=== PATIENT | male | born 1970 | race Caucasian/White ===

== ENCOUNTER → 2020-05-31 07:50 | Outpatient (CLI) | payer OTHER, SELFPAY ==
--- NOTE | ~2020-05-31 | US_ITS ---
EXAMINATION: US abdomen complete DATE: 05/31/2020 08:33 INDICATION: Elevated liver enzymes TECHNIQUE: Multiple grayscale and Doppler ultrasound images of the abdomen were obtained. COMPARISON: 09/20/2013 FINDINGS: The head and and body of the pancreas are normal. The pancreatic tail is obscured by bowel gas. The liver demonstrates increased echogenicity, heterogenous echotexture, and decreased through t ransmission. No surface nodularity. Normal hepatopetal flow in the main portal vein. The gallbladder is normal with no abnormal wall thickening, pericholecystic fluid or stones. The normal common bile d uct measures 4 mm. There was no sonographic Mondragon sign. The visualized portions of the aorta and inf erior vena cava are normal. The right kidney measures 10.7 x 6.4 x 5.9 cm. The left kidney measures 10.2 x 6.4 x 6.2 cm. The kidn eys demonstrate normal parenchymal echogenicity. There is no hydronephrosis. The spleen is normal in appearance and measures 10.5 cm. IMPRESSION: 1. Diffuse hepatic steatosis. Reviewed, dictated and finalized at location B.
== END ==
PROVIDERS: PCP Family Medicine Adolescent Medicine; Visit Provider Family Medicine Adolescent Medicine
DX: R94.5 Abnormal results of liver function studies (principal); K76.0 Fatty (change of) liver, not elsewhere classified
CPT/HCPCS: 76700

== ENCOUNTER 2020-10-23 08:28 | Outpatient (CLI) | payer OTHER, SELFPAY ==
--- NOTE | 2020-12-09 10:48 | WPDHOMESLEEP ---
Sleep Study - Home Unattended Date of Study: 10/23/20 Ordering Provider: Yousif Aguirre MD Interpreting Physician: Vania Herbert MD Home Sleep Study Type: Watch PAT Height: 1.83 m Weight: 97.976 kg Body Mass Index: 29.2 Neck Circumference (inches): 16.5 [place]: 4 Reason for Sleep Study poor quality sleep Sleep History Jamir Mills is a 50-year-old man who has difficulty falling asleep. He wakes up throughout the night. He frequently snores and it is loud enough that others complain about it. He occasionally awakens at night with belching, heartburn and coughing. He rarely awakens from sleep feeling short of breath. He occasionally has trouble sleeping with a cold. He never wakes up gasping for breath at night. He occasionally has breathing problems at night observed by others. He occasionally sweats excessively at night and notices his heart pounding or beating irregularly at night. He rarely falls asleep during the day. He never falls asleep involuntarily or while driving. He does not fall asleep while exerting physical effort. He does not have loss of muscle tone with strong emotion. He occasionally has daytime difficulties due to excessive sleepiness. 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 He does not feel paralyzed on waking or falling asleep. He occasionally has vivid dreamlike scenes upon awakening or falling asleep. He occasionally is afraid to go to sleep. He occasionally has nightmares. He occasionally remembers his dreams. He frequently has racing thoughts. He occasionally feels sad or depressed. He frequently has anxiety. He occasionally has muscular tension and notices parts of his body jerking at night. He frequently kicks at night. He occasionally has crawling and aching feelings in his legs and leg pain during the night. He rarely has morning jaw pain. He rarely grinds his teeth during sleep. He occasionally is bothered by pain during the day and is awakened by pain during the night. He occasionally wakes up feeling stiff in the morning with sore achy muscles and pain in the neck and spine. He has insomnia, palpitations and takes antacids regularly. Normal bedtime is around 11:00 p.m. taking an hour to fall asleep typically waking 8-10 times during the night. He will drink water when he wakes up. He will stay awake for 5-10 minutes on average. He does not take naps. A short nap is not refreshing. He is drowsy in the morning for an hour. He feels better in the evening compared to the morning. Habits: Quit tobacco 29 years ago. No caffeine. Alcohol 4-5 a beverages a couple of days out of the week. No recreational drugs. 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 Prior to using the device, the patient received verbal and written instructions for its application and was provided with the help desk phone number for additional telephonic instruction with 24-hour availability of qualified personnel to answer ques
[2020-12-09 11:16] VITALS: BMI 29.2
== END 2020-10-23 08:29 | disposition home or self-care (01) ==
LOC: ANHCSM 08:28
PROVIDERS: PCP Family Medicine Adolescent Medicine; Visit Provider Internal Medicine Cardiovascular Disease
DX: R06.83 Snoring (principal)
CPT/HCPCS: 95800

== ENCOUNTER → 2021-05-20 10:58 | Outpatient (CLI) | payer OTHER, SELFPAY ==
--- NOTE | ~2021-05-20 | CT_ITS ---
EXAMINATION: CT abdomen pelvis w con INDICATION: Left lower quadrant pain TECHNIQUE: Computed tomographic images of the abdomen and pelvis were obtained after the administrati on of 100 cc of Omnipaque 350 intravenous contrast. The dose-length product (DLP) was 860.25 mGy-cm. Automated exposure control and iterative reconstruction technique were employed. COMPARISON: 02/21/2016 FINDINGS: The lung bases are clear. The heart size is normal. The liver is diffusely low in attenuati on when compared with the spleen, consistent with hepatic steatosis. The spleen, pancreas, gallbladde r, and adrenal glands are normal. There is a 5 mm nonobstructing stone of the right kidney. Cysts of the left kidney measure up to 1.7 cm. No pathologically enlarged abdominal or pelvic lymph nodes are identified. There are no dilated loops of bowel. Colonic diverticulosis is noted. There is inflammato ry stranding of the perisigmoid fat near the proximal sigmoid colon. No free intraperitoneal gas is i dentified. The appendix is normal. There are bilateral pars defects at L4 with grade 1 anterolisthesi s of L4 on L5. Mild lumbar spondylosis is noted. IMPRESSION: 1. Acute, uncomplicated sigmoid diverticulitis. Reviewed, dictated and finalized at location B.
[2021-05-20 11:38] LABS: Estimated Glomerular Filt Rate > 60
== END ==
PROVIDERS: PCP Internal Medicine; Visit Provider Internal Medicine
DX: R10.32 Left lower quadrant pain (principal); K57.32 Diverticulitis of large intestine without perforation or abscess without bleeding
CPT/HCPCS: 74177; Q9967

== ENCOUNTER → 2021-06-23 07:55 | Outpatient (CLI) | payer OTHER, SELFPAY ==
--- NOTE | ~2021-06-23 | XR_ITS ---
EXAMINATION: XR tibia fibula RT 2V DATE: 06/23/2021 08:46 INDICATION: Right lower leg injury. TECHNIQUE: AP and lateral views of the right tibia/fibula were obtained. COMPARISON: Right knee radiographs dated 12/24/2015 FINDINGS: Bone alignment is normal. No fracture. Joint spaces are normal. Soft tissues are unremarkable with no right knee or ankle joint effusion. IMPRESSION: 1. . Negative right lower leg radiographs. Reviewed, dictated and finalized at location B.
== END ==
PROVIDERS: PCP Internal Medicine; Visit Provider Internal Medicine
DX: T14.8XXA Other injury of unspecified body region, initial encounter (principal); S89.91XA Unspecified injury of right lower leg, initial encounter; X58.XXXA Exposure to other specified factors, initial encounter
CPT/HCPCS: 73590

== ENCOUNTER 2021-10-07 14:55 | Outpatient (CLI) | payer OTHER, SELFPAY ==
--- NOTE | ~2021-10-07 | US_ITS ---
EXAMINATION: US abdomen limited DATE: 10/07/2021 15:52 INDICATION: Epigastric pain TECHNIQUE: Multiple grayscale and Doppler ultrasound images of the abdomen were obtained. COMPARISON: 05/31/2020; CT, 05/20/2021 FINDINGS: The head and body of the pancreas are normal. The pancreatic tail is obscured by bowel gas. The liver is normal with normal echogenicity and echotexture. No surface nodularity. Normal hepatope akanksha flow in the main portal vein. The gallbladder is normal with no abnormal wall thickening, pericho lecystic fluid or stones. The normal common bile duct measures 5 mm. There was no sonographic Mondragon sign. IMPRESSION: 1. Normal sonographic study of the gallbladder. Reviewed, dictated and finalized at location A. NISTRATIVE SERVICES ASSISTANT
--- NOTE | ~2021-10-07 | XR_ITS ---
EXAMINATION: XR chest 2V w apical lordotic EXAM DATE: 10/07/2021 16:10 INDICATION: R07.89 -central to left-sided chest pain. TECHNIQUE: Frontal and lateral projections of the chest obtained and reviewed. Additional apical lord otic frontal projection. Comparison is made to prior examination from 11/24/2017. FINDINGS: The lungs are clear. Lung apices unremarkable. There are no pleural effusions. The cardiom ediastinal silhouette is within normal limits. There is no pneumothorax suspected. The bones and so ft tissues are unremarkable. Left glenoid rotator cuff repair anchors. IMPRESSION: Unremarkable chest x-ray exam. Reviewed, dictated and finalized at location A. GRINDER
--- NOTE | ~2021-10-07 | XR_ITS ---
EXAMINATION: XR sniff test without CXR2V EXAM DATE: 10/07/2021 16:10 INDICATION: R10.13 - Epigastric pain. Anterior left chest pain. TECHNIQUE: Sniff test performed under fluoroscopic guidance. Dose reduction digital pulsed fluoroscop y was used at 4 frames per second with DAP 0.7 Gycm2, and a total number of 30 images for the exam. Total fluoroscopy time of 0.1 minutes. There is no prior study for comparison. FINDINGS: The hemidiaphragms move symmetrically under both quite respiration and forced inspiration, no evidence of paralysis. IMPRESSION: Normal diaphragm motion. Reviewed, dictated and finalized at location A. 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
== END 2021-10-07 14:56 | disposition home or self-care (01) ==
PROVIDERS: PCP Internal Medicine; Visit Provider Internal Medicine
DX: R06.02 Shortness of breath (principal); R07.81 Pleurodynia; R10.13 Epigastric pain; M25.512 Pain in left shoulder; M54.9 Dorsalgia, unspecified; R07.89 Other chest pain
CPT/HCPCS: 71047; 76000; 76705

== ENCOUNTER 2021-11-03 08:29 | Outpatient (CLI) | payer OTHER, SELFPAY ==
[2021-11-03 10:07] LABS: Influenza A QL RT-PCR Negative (Negative); Influenza B QL RT-PCR Negative (Negative); SARS-CoV-2 RNA PCR Positive (Negative)
== END 2021-11-03 08:30 | disposition home or self-care (01) ==
PROVIDERS: PCP Internal Medicine; Visit Provider Internal Medicine
DX: U07.1 COVID-19 (principal); R68.89 Other general symptoms and signs; R05.9 Cough, unspecified
CPT/HCPCS: 87502; C9803; U0003; U0005

== ENCOUNTER 2022-07-10 09:29 | Outpatient (CLI) | payer OTHER, SELFPAY ==
--- NOTE | ~2022-07-10 | CT_ITS ---
EXAMINATION: CT chest abdomen pelvis w con DATE: 07/10/2022 10:52 INDICATION: Night sweats. TECHNIQUE: Computed tomography (CT) of the chest, abdomen, and pelvis was performed with 100 mL Omnip aque 350 intravenous contrast. Automated exposure control and iterative reconstruction technique were employed. The dose-length product was 972.67 mGy-cm. COMPARISON: CT abdomen and pelvis 05/20/2021 FINDINGS: CHEST CT: There is mild emphysema. There is mild atelectasis bilaterally. No pleural effusion. The heart size i s normal. No pericardial effusion. There is mild thoracic spondylosis. ABDOMEN/PELVIS CT: There is diffuse hepatic steatosis. The spleen, gallbladder, pancreas, adrenal glands, and right kidn ey are normal. There is a 2.1 cm cyst in left kidney. There is diverticulosis of the colon without ev idence of diverticulitis. There are no dilated loops of bowel. The appendix is normal. There are no p athologically enlarged lymph nodes. There is no free intraperitoneal fluid. There are chronic bilater al L5 pars defects. There is 7 mm anterolisthesis of L4 on L5. There is moderate lumbar spondylosis. IMPRESSION: 1. Diffuse hepatic steatosis. 2. Mild emphysema. Reviewed, dictated and finalized at location A.
[2022-07-10 10:39] LABS: Estimated Glomerular Filt Rate > 60
== END 2022-07-10 09:30 | disposition home or self-care (01) ==
PROVIDERS: PCP Internal Medicine; Visit Provider Internal Medicine
DX: R61 Generalized hyperhidrosis (principal); L29.9 Pruritus, unspecified
CPT/HCPCS: 71260; 74177; Q9967

== ENCOUNTER 2022-07-21 08:00 | Outpatient (NON) | payer OTHER, SELFPAY | END 2022-07-21 08:01 | disposition home or self-care (01) | LOC: ANHLAB 07-22 13:05 | PROVIDERS: PCP Internal Medicine; Visit Provider Surgery Plastic and Reconstructive Surgery | DX: D17.1 Benign lipomatous neoplasm of skin and subcutaneous tissue of trunk (principal) | CPT/HCPCS: 88304 ==

== ENCOUNTER 2022-08-04 16:44 | Emergency (ER) | payer OTHER, SELFPAY ==
--- NOTE | ~2022-08-04 | XR_ITS ---
EXAMINATION: XR chest 2V Exam Date/Time: 08/04/2022 17:40 CDT HISTORY: high heart rate, SOB Comparison: 10/07/2021. RESULT: Lines, tubes, and devices: Soft tissue anchors in the left shoulder. Lungs and pleura: Patchy subsegmental and linear bibasilar opacities. Cardiomediastinal silhouette: Stable. Other: No acute osseous or upper abdominal finding. IMPRESSION: Bibasilar atelectasis and/or consolidation. Reviewed, dictated and finalized at location K.
[2022-08-04 16:46] VITALS: BP 141/104; PULSE 89; RESP 16; TEMP 36.2; O2SAT 100
--- NOTE | 2022-08-04 16:48 | ECG_ITS ---
Measurements Intervals [place] Rate: 92 P: 59 IA: 172 QRS: 49 QRSD: 90 T: 33 QT: 332 QTc: 412 Interpretive Statements SINUS RHYTHM NORMAL ECG NO PREVIOUS ECG AVAILABLE FOR COMPARISON Electronically Signed On 08-04-2022 17:09:23 CDT by Jeremiah Robison M.D.
[2022-08-04 18:26] LABS: Basophils Absolute Auto 0.1 K/mm3 (0.0-0.1); Basophils Percent Auto 1.1 % (0.2-1.2); Eosinophils Absolute Auto 0.3 K/mm3 (0-0.3); Hematocrit 48.9 % (42.0-52.0); Immature Granulocyte Absolute 0.02 K/mm3 (0.00-0.031); Immature Granulocyte Percent A 0.3 % (0-0.5); Lymphocytes Absolute Auto 2.25 K/mm3 (0.9-3.2); Lymphocytes Percent Auto 32.2 % (18.3-44.2); Mean Corpuscular HGB Conc 32.7 g/dl (32-36); Mean Corpuscular Hemoglobin 30.5 pg (26-34); Mean Corpuscular Volume 93.1 fl (80-100); Mean Platelet Volume 8.6 fl (7.4-10.4); Monocytes Absolute Auto 0.9 K/mm3 (0.1-0.6); Monocytes Percent Auto 13.3 % (2.6-8.5); Neutrophils Absolute Auto 3.4 K/mm3 (1.3-6.7); Neutrophils Percent Auto 49.1 % (45.5-73.1); Platelet Count Result 243 k/mm3 (150-375); Red Blood Count 5.25 M/mm3 (4.6-6.20); Red Cell Distribution Width 13.3 % (11.5-14.5)
[2022-08-04 18:36] LABS: INR 1.1; Prothrombin Time 13.9 Seconds (11.1-14.7)
[2022-08-04 18:37] LABS: Alanine Aminotransferase 50 U/L (6-50); Albumin Level 4.4 g/dL (3.5-5.1); Alkaline Phosphatase 61 U/L (38-126); Anion Gap 5 mmol/L (8-16); Aspartate Amino Transferase 50 U/L (17-59); Bilirubin,Total 0.5 mg/dL (0.2-1.3); Blood Urea Nitrogen 15 mg/dL (9-20); Calcium 8.9 mg/dL (8.4-10.2); Carbon Dioxide 28 mmol/L (22-30); Chloride 106 mmol/L (98-107); Estimated CRCL calculation 60 ml/min; Estimated Glomerular Filt Rate > 60; Glucose 88 mg/dL (65-110); Lipase 107 U/L (23-300); Partial Thromboplastin Time 28.1 SECONDS (22.3-36.8); Potassium 4.4 mmol/L (3.4-5.0); Sodium 139 mmol/L (137-145)
[2022-08-04 18:51] LABS: Troponin I 0.012 ng/mL (0.000-0.034)
--- NOTE | 2022-08-04 20:31 | ED.ARRPALP ---
HPI - Arrhythmia/Palpitations General Chief Complaint: Arrhythmia/Palpitations Stated Complaint: High Heart Rate Time Seen by Provider: 08/04/22 19:59 History of Present Illness HPI narrative: This is a 52-year-old male with past medical history of anxiety who presents the emergency department complaining of palpitations. He states has been going on for about the last week worse in the last few days. He states she has been evaluated for cough, placed on albuterol which caused worsening of his palpitations then Breo Ellipta which he believes has also irritated the palpitations. He denies associated chest pain or loss of consciousness. He states he has seen heart rates in the 160s by his smart watch monitor. Each episode lasts 1 to 2 minutes and resolves on its own. He has no other complaints. Related Data Home Medications Medication Instructions Recorded Confirmed multivitamin 1 tablet PO DAILY 01/30/21 07/29/22 tadalafil 10 mg tablet (Cialis) 10 mg PO DAILY PRN 03/28/21 07/29/22 cholecalciferol (vitamin D3) 25 25 mcg PO DAILY 04/07/21 07/29/22 mcg (1,000 unit) capsule Allergies Allergy/AdvReac Type Severity Reaction Status Date / Time meperidine Allergy Unknown Unknown Verified 07/27/22 07:39 acetaminophen [From Vicodin] AdvReac Agitated Verified 07/27/22 07:39 hydrocodone [From Vicodin] AdvReac Agitated Verified 07/27/22 07:39 propoxyphene [From Darvon] AdvReac Agitated Verified 07/27/22 07:39 Review of Systems Review of Systems: CONSTITUTIONAL: Denies fever, chills, or sweats. EYES: Denies visual changes, redness, or discharge. ENT: Denies rhinorrhea, congestion, sore throat, or otalgia. CARDIOVASCULAR: palpitations Denies chest pain, , or edema. RESPIRATORY: Intermittent cough, denies dyspnea. GASTROINTESTINAL: Denies abdominal pain, nausea, vomiting, or diarrhea. GENITOURINARY: Denies dysuria or hematuria. SKIN: Denies rash or itching. MUSCULOSKELETAL: Denies back pain, joint pain, or myalgia. NEUROLOGIC: Denies headache, numbness, dizziness, or weakness. PSYCHIATRIC: Denies anxiety or depression. [facility] Past Medical History Medical History (Reviewed 07/27/22 @ 07:42 by Mia Calderón [facility]) Abnormal finding of blood chemistry Anxiety Benign essential hypertension BMI 28.0-28.9,adult BMI 29.0-29.9,adult Chronic low back pain Colon cancer screening Diarrhea Encounter for preventive health examination Encounter for routine adult health examination without abnormal findings Encounter to establish care Epigastric pain Erectile dysfunction Follow up GERD (gastroesophageal reflux disease) Heartburn Hip pain History of diverticulosis Hypercholesterolemia Hyperlipidemia Hypertension Hypogonadism IBS (irritable bowel syndrome) Impacted cerumen of both ears Left hip pain Left shoulder pain Lipoma Male pattern baldness Mass Muscle spasm 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 Overweight Prostate cancer screening Seasonal allergies Vitamin D deficiency Surgical History Surgical History History of ptosis repair Family History Family History Mother Family history of arthritis Social History Social History (Reviewed 07/27/22 @ 07:42 by Mia Calderón [facility]) Smoking status: Former smoker Alcohol intake: current Alcohol use details: 4-5 drinks a couple of times a week Substance use: never 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 Appears somewhat anxious HEAD: Normocephalic, atraumatic. EYES: PERRLA and EOMI. ENT: Nares clear, no rhinorrhea or epistaxis. Mucous membranes moist. Oropharynx without tonsillar hypertrophy exudate or other lesions. NECK: Supple. No adenopathy or masses. No carotid bruits or JVD CHEST: Clear to auscultation. No respiratory distress. No wheezes rales or
[2022-08-04 20:33] VITALS: BP 144/105; PULSE 77; RESP 13
[2022-08-04 20:37] VITALS: PULSE 72
[2022-08-04] MEDS: METOPROLOL TARTRATE 25 MG TABLET PO (20:37)
[2022-08-04 20:55] VITALS: BP 130/92; PULSE 73; RESP 14
[2022-08-04 21:01] VITALS: BP 134/95
[2022-08-04 21:12] LABS: Troponin I 0.023 ng/mL (0.000-0.034)
== END 2022-08-04 21:17 | disposition home or self-care (01) ==
PROVIDERS: Emergency Medicine; Emergency Provider Preventive Medicine Aerospace Medicine; PCP Internal Medicine
DX: R00.2 Palpitations (principal); I47.1 Supraventricular tachycardia; I10 Essential (primary) hypertension; F41.9 Anxiety disorder, unspecified; K21.9 Gastro-esophageal reflux disease without esophagitis; E78.5 Hyperlipidemia, unspecified; E55.9 Vitamin D deficiency, unspecified; N52.9 Male erectile dysfunction, unspecified; K58.9 Irritable bowel syndrome, unspecified; Z79.51 Long term (current) use of inhaled steroids; Z87.891 Personal history of nicotine dependence
CPT/HCPCS: 36415; 71046; 80053; 83690; 84484; 85025; 85610; 85730; 93005; 99284; A9270

== ENCOUNTER 2022-08-13 07:50 | Outpatient (CLI) | payer OTHER, SELFPAY ==
--- NOTE | 2022-08-13 08:09 | ECHO_ITS ---
Patient Info Name: Jamir Ndiaye Age: 52 years : 1970 Gender: Male Ht: 72 in Wt: 212 lbs BSA: 2.23 m2 HR: 71 bpm BP: 133 / 87 mmHg Heart Rhythm: Sinus Rhythm Exam Date: 08/13/2022 8:28 AM Exam Location: [facility] Patient Status: Outpatient Admit Date: 08/13/2022 Staff Ordering Physician: Justin Linton MD Drapery Seamstress: Carlos Mondragon, CHIRAG, RT Attending Provider: Justin Linton MD Referring Physician: Shaila BHATIA; Exam Type: CA echo doppler color flow Study Info Indications - SVT I49.8 - Other specified cardiac arrhythmias Complete two-dimensional, color flow and Doppler transthoracic echocardiogram is performed. Strain analysis performed. Summary 1. Complete two-dimensional, color flow and Doppler transthoracic echocardiogram is performed. 2. Left ventricular systolic function is normal, estimated at 60-65%. 3. There is mildly increased left ventricular wall thickness. 4. The left ventricular diastolic function is normal. 5. Right ventricular systolic function is normal. 6. The aortic root size at the sinus of Valsalva is dilated. 7. No significant valvular disease. Left Ventricle Left ventricular chamber dimension is normal. Left ventricular systolic function is normal, estimated at 60-65%. There is mildly increased left ventricular wall thickness. The left ventricular diastolic function is normal. Right Ventricle Right ventricular chamber dimension is normal. Right ventricular systolic function is normal. Left Atria Left atrial chamber dimension is normal. Right Atria Right atrial chamber dimension is normal. Atrial Septum Intact interatrial septum visualized by color flow imaging. Aortic Valve The aortic valve is probable trileaflet. There is no aortic valve stenosis. There is no aortic valve regurgitation. Pulmonic Valve The pulmonic valve is not well visualized. Mitral Valve The mitral valve has normal leaflets. There is no mitral valve stenosis. There is trace mitral valve regurgitation. Tricuspid Valve The tricuspid valve leaflets are normal. There is no significant tricuspid valve stenosis. There is mild tricuspid valve regurgitation. Pericardium/Pleural There is no pericardial effusion. Inferior Vena Cava Normal inferior vena cava with >50% collapse upon inspiration consistent with normal right atrial pressure, 3 mmHg. Aorta The aortic root size at the sinus of Valsalva is dilated. Left Ventricular Outflow Tract Name Value Normal LVOT 2D LVOT Diameter 2.0 cm LVOT Doppler LVOT Peak Gradient 5 mmHg LVOT Mean Gradient 2 mmHg LVOT VTI 22 cm LVOT VTI/AV VTI Ratio 0.8 LVOT Stroke Volume 71 ml LVOT CO 4.5 l/min LVOT CI 2.0 l/min/m2 Mitral Valve Name Value Normal
== END 2022-08-13 07:51 | disposition home or self-care (01) ==
LOC: ANHCARD 07:51
PROVIDERS: PCP Internal Medicine; Visit Provider Internal Medicine
DX: R00.2 Palpitations (principal); R06.02 Shortness of breath; I47.1 Supraventricular tachycardia
CPT/HCPCS: 93306

== ENCOUNTER 2022-08-14 09:12 | Outpatient (CLI) | payer OTHER, SELFPAY ==
--- NOTE | 2022-08-14 09:58 | PCRCNOTE ---
PT CAME IN FOR PULMONARY FUNCTION TESTING AND DECLINED ALBUTEROL DUE TO SIDE EFFECT OF RAPID HEART RATE
--- NOTE | 2022-08-24 14:05 | WPDPFTINT ---
PFT Procedure Performed PFT Procedure Performed Plethysmography (Lung Vol) Diffusing Cap (DLCO) Flow Vol Loop Spirometry w/o Bronchodil PFT Interpretation DOS: 08/14/2022 REQUESTING: Dr. Linton REASON FOR TESTING: Chronic cough PULMONARY FUNCTION TESTS Results are reliable and reproducible. Spirometry: FEV1 3.5 L, 84%, normal. FVC 4.39 L, 83%, normal. FEV1/FVC 80% normal. No bronchodilator was given. Lung volumes: Total lung capacity 6.35 L, 86%, normal. Residual volume 1.93 L, 89%, normal. RV/TLC 30%, normal. Diffusion: DLCO 26.7, 85% predicted, normal. DLCO/VA 4.25, 96% normal. Flow volume loop: Normal. IMPRESSION: Normal spirometry, lung volumes and diffusion capacity. No bronchodilator was given due to patient previous side effect of rapid heart rate. Vania Herbert MD
== END 2022-08-14 09:13 | disposition home or self-care (01) ==
PROVIDERS: PCP Internal Medicine; Visit Provider Internal Medicine
DX: R05.3 Chronic cough (principal); R06.02 Shortness of breath; R06.09 Other forms of dyspnea
CPT/HCPCS: 94060; 94726; 94729

== ENCOUNTER 2023-09-20 15:11 | Outpatient (NON) | payer OTHER, SELFPAY | END 2023-09-20 15:12 | disposition home or self-care (01) | LOC: ANHLAB 15:11 | PROVIDERS: PCP Internal Medicine; Visit Provider Nurse Practitioner | DX: C44.519 Basal cell carcinoma of skin of other part of trunk (principal) | CPT/HCPCS: 88305; 88331 ==

== ENCOUNTER 2024-01-26 13:28 | Outpatient (CLI) | payer OTHER, SELFPAY ==
--- NOTE | ~2024-01-26 | XR_ITS ---
EXAMINATION: XR chest 2V 01/26/2024 13:40 INDICATION: Cough for one year PROCEDURE: 2 view chest COMPARISON: 08/04/2022 FINDINGS: The lungs are clear. The cardiomediastinal silhouette is within normal limits. There are no pleural effusions. There is no pneumothorax suspected. IMPRESSION: 1: NO ACUTE CARDIOPULMONARY DISEASE. Reviewed, dictated and finalized at location B.
== END 2024-01-26 13:29 ==
PROVIDERS: PCP Internal Medicine; Visit Provider Internal Medicine
DX: R05.9 Cough, unspecified (principal)
CPT/HCPCS: 71046

== ENCOUNTER 2024-05-24 09:29 | Outpatient (CLI) | payer OTHER, SELFPAY ==
--- NOTE | ~2024-05-24 | US_ITS ---
COMPLETE ABDOMINAL ULTRASOUND Ordering provider: Justin Linton MD History: . R10.12 - Left upper quadrant pain . Comparison: None. FINDINGS: LIVER: Normal size with increased echogenicity suggestive of fat infiltration. No focal hepatic lesio ns or perihepatic fluid collections are identified. Normal flow of the portal vein. GALLBLADDER: Unremarkable. No evidence for stones, sludge, gallbladder wall thickening or pericholecy stic fluid collections. A negative sonographic Mondragon's sign was noted. BILIARY DUCTS: No evidence for intra or extrahepatic biliary dilation. Common bile duct measures 4.5 mm in diameter which is within normal limits. PANCREAS: Not visualized. SPLEEN: Normal size, echotexture and contour and measures 10.1 cm in length. KIDNEYS: Right measures 12.6x 6.9x 5.7 cm in length and the left 11.3x 6.7x 5.5 cm in length. There i s no evidence for hydronephrosis, solid renal mass, renal calculi or perinephric fluid collections. L eft renal cyst in the inferior pole measuring 1.4x 1.6x 1.5 cm. UPPER ABDOMINAL AORTA: Normal in caliber. IVC: Patent. FREE FLUID: None. IMPRESSION: Fat infiltration of the liver. Left renal cyst. Otherwise, Unremarkable complete ultrasound of the ab domen. Reviewed, dictated and finalized at location A. IMPRESSION: Fat infiltration of the liver. Left renal cyst. Otherwise, Unremarkable complet e ultrasound of the abdomen.
== END 2024-05-24 09:30 ==
LOC: GOSHIMG 09:30
PROVIDERS: PCP Internal Medicine; Visit Provider Internal Medicine
DX: K76.0 Fatty (change of) liver, not elsewhere classified (principal); N28.1 Cyst of kidney, acquired; R10.12 Left upper quadrant pain
CPT/HCPCS: 76700

== ENCOUNTER 2024-06-02 08:26 | Outpatient (CLI) | payer OTHER, SELFPAY ==
--- NOTE | ~2024-06-02 | CT_ITS ---
CT of the Abdomen and Pelvis: Indication: Abdominal pain Technique: 2.5 mm axial scans were obtained through the abdomen and pelvis following intravenous adm inistration of 100 cc of Omnipaque 350. Dose reduction technique was used on this scan by utilizing a utomated exposure control and iterative reconstruction technique. The dose-length product (DLP) was 1 025.52 mGy-cm. COMPARISON: 07/10/2022 Findings: Scans through the lung bases demonstrate peripheral interstitial thickening and minimal gr oundglass opacity lung bases, with sparing of the immediate subpleural surfaces.. There is probable diffuse hepatic steatosis. The spleen, pancreas, gallbladder, adrenals and kidneys are within normal limits. No evidence of aortic aneurysm. No lymphadenopathy. No bowel obstruction or bowel wall thickening. There is no evidence to suggest acute appendicitis. Images through the pelvis were performed. Urinary bladder unremarkable. No pelvic mass seen. No ascit es. Bilateral L4 pars interarticularis defects are present, with grade 1 anterolisthesis of L4 over L 5. Impression: Bibasilar interstitial thickening and minimal ground glass opacity at the lung bases. Correlate for c hronic interstitial disease versus atypical infectious/inflammatory process. Diffuse hepatic steatosis. Bilateral L4 pars interarticularis defects. Reviewed, dictated and finalized at location . Impression: Bibasilar interstitial thickening and minimal ground glass opacity at the lung bases. Correlate for chronic interstitial disease versus atypical infectious/in flammatory process. Diffuse hepatic steatosis. Bilateral L4 pars interarticularis defects.
[2024-06-02 08:48] LABS: Estimated Glomerular Filt Rate 53
== END 2024-06-02 08:27 ==
LOC: MICIMG 08:27
PROVIDERS: PCP Internal Medicine; Visit Provider Internal Medicine
DX: K76.0 Fatty (change of) liver, not elsewhere classified (principal); M43.06 Spondylolysis, lumbar region; R91.8 Other nonspecific abnormal finding of lung field
CPT/HCPCS: 74177; Q9967

== ENCOUNTER 2024-06-12 10:13 | Outpatient (CLI) | payer OTHER, SELFPAY ==
--- NOTE | 2024-06-13 22:59 | WPDPFTINT ---
PFT Procedure Performed PFT Procedure Performed Plethysmography (Lung Vol) Diffusing Cap (DLCO) Flow Vol Loop Spirometry w/o Bronchodil PFT Interpretation DOS: 06/12/2024 REQUESTING: Dr. Linton REASON FOR TESTING: Shortness of breath PULMONARY FUNCTION TESTS Results are reliable and reproducible. Repeatability of spirometry FEV1 maneuver is Grade A. Spirometry: The FEV1 is 3.53 L, 102%. The FVC is 4.55 L, 103%. The FEV1/FVC ratio is 78%. No bronchodilator was given. Lung volumes: The total lung capacity is 6.54 L, 104%. The residual volume is 1.74 L, 77%. The RV/TLC is 27%. Airway resistance is elevated. Diffusion: DLCO is 22.7, 8%. The DLCO/VA is 4.11, 98%. Flow volume loop: The flow volume loop is normal. IMPRESSION: Normal spirometry, normal lung volumes, normal diffusion. No bronchodilator was given. Compared to a prior study on 08/14/2022, values are similar. Vania Herbert MD
== END 2024-06-12 10:14 | disposition home or self-care (01) ==
PROVIDERS: PCP Internal Medicine; Visit Provider Internal Medicine
DX: R06.02 Shortness of breath (principal)
CPT/HCPCS: 94375; 94726; 94729

== ENCOUNTER 2025-04-06 08:06 | Outpatient (CLI) | payer OTHER, SELFPAY ==
--- NOTE | ~2025-04-06 | CT_ITS ---
EXAMINATION: CT abdomen pelvis wo/w con DATE: 04/06/2025 08:28 INDICATION: Abdominal pain TECHNIQUE: Computed tomography (CT) of the abdomen and pelvis was performed without and with 100 cc O mnipaque 350 intravenous contrast. The dose-length product was 1595.96 mGy-cm. Automated exposure con trol and iterative reconstruction technique were employed. COMPARISON: CT dated 06/02/2024. FINDINGS: There is peripheral interstitial lung disease characterized by groundglass opacification an d areas of interlobular septal thickening. Heart size normal. No significant pleural or pericardial e ffusion. Fatty infiltration of the liver. The spleen, pancreas, adrenal glands and right kidney are unremarkab le. There is a left renal cyst. Gallbladder is present. Nonobstructive bowel gas pattern. No abnormal pelvic masses or fluid collections. No significant vascular abnormality. No lymphadenopathy. Nonobst ructive bowel gas pattern. Colonic diverticulosis without evidence for diverticulitis. Normal appendi x. Mild osteoarthritis of the hips. There is grade 2 spondylolisthesis at L4-5 secondary to bilateral spondylolysis. Mild lumbar spondylosis. IMPRESSION: 1. Stable peripheral interstitial changes bilaterally, likely chronic interstitial lung disease. Atyp ical infection less favored. 2: Fatty infiltration of the liver. Reviewed, dictated and finalized at location A. IMPRESSION: 1. Stable peripheral interstitial changes bilaterally, likely chronic interstit ial lung disease. Atypical infection less favored. 2: Fatty infiltration of the liver.
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
--- OUTSIDE RECORDS SUMMARY | 2025-04-06 08:11 | XMS_ITS | Referral Summary ---
Author Organization [facility] [address] [facility] [address] Address [address] [place] [address] Care Team Providers Care Beer Brewer Name Role Phone Justin Linton MD Primary Care Provider [phone] Encounters Date Type Department Care Team Description 03/20/2025 Telephone [facility] Cardiology [address] [facility] [address] [place] [address] Yousif Aguirre MD Med Refill from Last 3 Months Allergies Active Allergy Reactions Criticality Noted Date Comments Acetaminophen Other (See comments) High Reaction: unknown, Propoxyphene Other (See comments) High Reaction: unknown, , Reaction: unknown, Elrqtof-Ifi-Xgm Reductase Inhibitors Other (See comments) Low 11/08/2020 Elevated liver enzymes Medications ALPRAZolam (XANAX) 0.5 mg tablet take 1 tablet by oral route 3 times every day 0 0 7 Active multivitamin tablet tablet take 1 tablet by oral route every day with food 0 0 7 Active dicyclomine (BENTYL) 10 mg capsule 1 Active candesartan (ATACAND) 32 mg tablet Take 0.5 tablets (16 mg total) by mouth daily Active dilTIAZem CD 240 mg 24 hr capsule Take 1 capsule (240 mg total) by mouth every other day 2 Active aspirin 81 mg enteric coated tablet Take 1 tablet (81 mg total) by mouth daily 30 tablet 11 2 Active VITAMIN E ACETATE ORAL Take by mouth Active ergocalciferol, vitamin D2, (VITAMIN D2 ORAL) Take by mouth Active docosahexaenoic acid/epa (FISH OIL ORAL) Take by mouth Active cyclobenzaprine (FLEXERIL) 10 mg tablet 4 Active finasteride (PROPECIA) 1 mg tablet [address] (PROTONIX) 40 mg EC tablet 4 Active testosterone 20.25 mg/1.25 gram (1.62 %) gel in metered-dose pump 4 Active tadalafiL (ADCIRCA) 10 mg tablet 4 Active evolocumab 140 mg/mL pen injector Inject 1 mL (140 mg total) under the skin every 14 (fourteen) days 2 mL 11 5 Active evolocumab 140 mg/mL pen injector Inject 1 mL (140 mg total) under the skin every 14 (fourteen) days 2 mL 11 4 03/20/20 25 Discontinu ed(Reorder ) Active Problems Problem Noted Date Diagnosed Date 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 Social History Tobacco Use Types Packs/Day Years Used Date Smoking Tobacco: Former Cigarettes Q uit: 08/13/1992 Smokeless Tobacco: Never Tobacco Cessation:Counseling Given: Not Answered Alcohol Use Standard Drinks/Week Comments Yes 0 (1 standard drink = 0.6 oz pur e alcohol) Sex and Gender Information Value Date Recorded Sex Assigned at Not on file 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 Gender Identity Not on file Sexual Orientation Not on file Last Filed Vital Signs Vital Sign Reading Time Taken Comments Blood Pressure 108/80 08/25/2024 8:47 AM CDT Pulse 90 08/25/2024 8:47 AM CDT Temperature - - Respiratory Rate 18 08/07/2020 2:09 PM CDT Oxygen Saturation 96% 08/25/2024 8:47 AM CDT Inhaled Oxygen Concentration - - Weight 96.2 kg (212 lb) 08/25/2024 8:47 AM CDT Height 182.9 cm (6') 08/25/2024 8:47 AM CDT Body Mass Index 28.75 08/25/2024 8:47 AM CDT Plan of Treatment Not on file Insurance [facility] CHOICE PLUS [facility] CHOICE PLUS Care Teams Beer Brewer Relationship Specialty Start Date End Date Justin Linton MD [address] [facility] [address] [facility] [address] [place] [address] PCP - General Internal Medicine 08/13/21
--- OUTSIDE RECORDS SUMMARY | 2025-04-06 08:11 | XMS_ITS | Encounter Summary ---
Author Organization [facility] Address [address] [place] [address] Care Team Providers Care Coal Pulverizer Operator Name Role Phone Jason Mckee MD Primary Care Provider + Justin Linton MD Primary Care Provider [phone] Encounter Details Date Type Department Care Team (Late st Contact Info) Description 05/08/2020 Lab Requisition [facility] DermPath Lab [address] [facility] [place] [address] Truong Alston MD [address] [facility] [place] [address] Social History Tobacco Use Types Packs/Day Years Used Date Smoking Tobacco: Never Assessed Sex and Gender Information Value Date Recorded Sex Assigned at Not on file Legal Sex Male 4:38 PM CDT Gender Identity Not on file Sexual Orientation Not on file documented as of this encounter Plan of Treatment Not on file documented as of this encounter Procedures Procedure Name Priority Date/Time Associated Diagnosis Comments DERMATOPATHOLOGY Routine 05/07/2020 12:0 0 AM CDT documented in this encounter Results * DERMATOPATHOLOGY (05/07/2020 12:00 AM CDT) Case Report Dermatopathology Report Case: [id number] Authorizing Provider: Truong Alston MD Collected: 05/07/2020 12:00 AM Ordering Location: [facility] DermPath Lab Received: 05/08/2020 07:18 AM Pathologist: Reginald Goodwin MD Specimen: Skin, left mid back 0 1:56 PM CDT DERMATOPATHOLOGY LABORATORY Final Diagnosis Specimen A. SKIN, left mid back: NEUROFIBROMA (D36.10) EPIDERMAL NECROSIS SUGGESTIVE OF EXCORIATION (L98.499) 0 1:56 PM CDT DERMATOPATHOLOGY LABORATORY at 1356 CDT Clinical History Angioma vs MM. Path# [id number] 0 1:56 PM CDT DERMATOPATHOLOGY LABORATORY Gross Description Specimen A: Received is one formalin filled container labeled with the patient's name and designated left mid back. The specimen consists of a shave biopsy measuring 5x4x3 mm. Jar 0. 0 1:56 PM CDT DERMATOPATHOLOGY LABORATORY Microscopic Description Specimen A. SKIN, left mid back: Sections show a proliferation of spindled and S-shaped cells within the dermis. The stromal collagen is delicate and pale. The epidermis is focally necrotic and covered with a scale-crust. There is fibrin at the base. 0 1:56 PM CDT DERMATOPATHOLOGY LABORATORY Disclaimer An external and internal positive and negative controls are appropriate for the histochemical, immunohistochemical and immunofluorescence stain(s) in this case (if any), except where stated explicitly. The performance characteristics of the stain(s) cited in this report were developed and its performance characteristic determined by the Dermatopathology Laboratory at [facility], directed by Dr. Cecy Goodwin. These tests need not be, and therefore are not, approved by the [place] Food and Drug Administration. The tests are used for clinical purposes. Billing Codes Specimen Charges Stain Charges 82636 1 0 1:56 PM CDT DERMATOPATHOLOGY LABORATORY Embedded Images 0 1:56 PM CDT DERMATOPATHOLOGY LABORATORY Pathology/Cytolog y TISSUE SPECIMEN FROM SKIN / Unknown 05/07/2020 05/08/2020 7:18 AM CDT us Truong Alston MD LAB - PATHOLOGY/CYTOLOGY ORDER TELLY Final Result DERMATOPATHOLOGY LABORATORY [facility] - Department of Dermatology [employer] [place] [address], [facility] [phone] documented in this encounter Visit Diagnoses Not on filedocumented in this encounter Care Teams Coal Pulverizer Operator Relationship Specialty Start Date End Date Jason Mckee MD [address] [address] PCP - General 05/08/20 07/27/22 Justin Linton MD [address] [place] [address] PCP - General 07/28/22 documented as of this encounter
--- OUTSIDE RECORDS SUMMARY | 2025-04-06 08:11 | XMS_ITS | Encounter Summary ---
Author Organization [facility] Address [address] [place] [address] Care Team Providers Care Information Consultant Name Role Phone Justin Linton MD Primary Care Provider [phone] Encounter Details Date Type Department Care Team (Late st Contact Info) Description 05/17/2023 Lab Requisition [facility] - DermPath Lab [address] [facility] [place] [address] Truong Alston MD [address] [place] [address] Social History Tobacco Use Types Packs/Day Years [...] Priority Date/Time Associated Diagnosis Comments DERMATOPATHOLOGY Routine 05/17/2023 12:0 0 AM CDT documented in this encounter Results * DERMATOPATHOLOGY (05/17/2023 12:00 AM CDT) Case Report Dermatopathology Report Case: [id number] Authorizing Provider: Truong Alston MD Collected: 05/17/2023 12:00 AM Ordering Location: [facility] DermPath Lab Received: 05/17/2023 04:40 PM Pathologist: Lisa Argueta MD Specimen: Skin, left clavicle 6:57 PM CDT DERMATOPATHOLOGY LABORATORY Final Diagnosis Specimen A. SKIN, left clavicle: BASAL CELL CARCINOMA, NODULAR TYPE (C44.619) CALCINOSIS CUTIS (L94.2) 3 6:57 PM CDT DERMATOPATHOLOGY LABORATORY at 1857 CDT Clinical History BCCA vs SK Path#[id number] 3 6:57 PM CDT DERMATOPATHOLOGY LABORATORY Gross Description Specimen A: Received is one formalin filled container labeled with the patient's name and designated left clavicle. The specimen consists of a shave biopsy measuring 5x4x1 mm. Jar 0. 3 6:57 PM CDT DERMATOPATHOLOGY LABORATORY Microscopic Description Specimen A. SKIN, left clavicle: Within the dermis there are aggregates of basaloid cells with a high nuclear to cytoplasmic ratio and peripheral palisading. Within the dermis, there are aggregates of homogenous amorphous basophilic material consistent with calcium. 3 6:57 PM CDT DERMATOPATHOLOGY LABORATORY Disclaimer An external and internal positive and negative controls are appropriate for the histochemical, immunohistochemical and immunofluorescence stain(s) in this case (if any), except where stated explicitly. The performance characteristics of the stain(s) cited in this report were developed and its performance characteristic determined by the Dermatopathology Laboratory at [facility], directed by Dr. Cecy Goodwin. These tests need not be, and therefore are not, approved by the [place] Food and Drug Administration. The tests are used for clinical purposes. Billing Codes Specimen Charges Stain Charges 06679 1 3 6:57 PM CDT DERMATOPATHOLOGY LABORATORY Embedded Images 3 6:57 PM CDT DERMATOPATHOLOGY LABORATORY Pathology/Cytolog y TISSUE SPECIMEN FROM SKIN / Unknown 05/17/2023 05/17/2023 4:40 PM CDT us Truong Alston MD LAB - PATHOLOGY/CYTOLOGY ORDER TELLY Final Result DERMATOPATHOLOGY LABORATORY [facility] - Department of Dermatology [address] [phone] documented in this encounter Visit Diagnoses Not on filedocumented in this encounter Care Teams Information Consultant Relationship Specialty Start Date End Date Justin Linton MD [address] [place] [address] PCP - General 07/28/22 documented as of this encounter
--- OUTSIDE RECORDS SUMMARY | 2025-04-06 08:11 | XMS_ITS | Encounter Summary ---
Author Organization [facility] Address [address] [facility] [place] [address] Care Team Providers Care County Library Director Name Role Phone Justin Linton MD Primary Care Provider [phone] Encounter Details Date Type Department Care Team (Late st Contact Info) Description 07/30/2023 Lab Requisition [facility] - DermPath Lab [address] [facility] [place] [address] Truong Alston MD [address] [place] [address] Social History Tobacco Use Types [...] Priority Date/Time Associated Diagnosis Comments DERMATOPATHOLOGY Routine 07/30/2023 12:0 0 AM CDT documented in this encounter Results * DERMATOPATHOLOGY (07/30/2023 12:00 AM CDT) Case Report Dermatopathology Report Case: [id number] Authorizing Provider: Truong Alston MD Collected: 07/30/2023 12:00 AM Ordering Location: [facility] DermPath Lab Received: 07/30/2023 04:16 PM Pathologist: Mara Breen MD Specimen: Skin, left upper chest 12:31 PM CDT DERMATOPATHOLOGY LABORATORY Final Diagnosis Specimen A. SKIN, left upper chest: BASAL CELL CARCINOMA, INFILTRATIVE PATTERN (C44.519) 12:31 PM CDT DERMATOPATHOLOGY LABORATORY at 1231 CDT Clinical History Nevus vs BCCA Path# [id number] 12:31 PM CDT DERMATOPATHOLOGY LABORATORY Gross Description Specimen A: Received is one formalin filled container labeled with the patient's name and designated left upper chest. The specimen consists of a shave biopsy measuring 5x7x1 mm. Jar 0. 12:31 PM CDT DERMATOPATHOLOGY LABORATORY Microscopic Description Specimen A. SKIN, left upper chest: Within the dermis there are nodular aggregates of basaloid cells associated with fibromyxoid stroma and epithelial-stromal clefts. At the advancing margin of the neoplasm, there are smaller angulated nests that infiltrate the dermis. 12:31 PM CDT DERMATOPATHOLOGY LABORATORY Disclaimer An external and internal positive and negative controls are appropriate for the histochemical, immunohistochemical and immunofluorescence stain(s) in this case (if any), except where stated explicitly. The performance characteristics of the stain(s) cited in this report were developed and its performance characteristic determined by the Dermatopathology Laboratory at [facility], directed by Dr. Cecy Goodwin. These tests need not be, and therefore are not, approved by the [place] Food and Drug Administration. The tests are used for clinical purposes. Billing Codes Specimen Charges Stain Charges 95158 1 12:31 PM CDT DERMATOPATHOLOGY LABORATORY Embedded Images 12:31 PM CDT DERMATOPATHOLOGY LABORATORY Pathology/Cytolog y TISSUE SPECIMEN FROM SKIN / Unknown 07/30/2023 07/30/2023 4:16 PM CDT us Truong Alston MD LAB - PATHOLOGY/CYTOLOGY ORDER TELLY Final Result DERMATOPATHOLOGY LABORATORY [facility] - Department of Dermatology [address] [place] [address], [facility] [phone] documented in this encounter Visit Diagnoses Not on filedocumented in this encounter Care Teams County Library Director Relationship Specialty Start Date End Date Justin Linton MD [address] [place] [address] PCP - General 07/28/22 documented as of this encounter
--- OUTSIDE RECORDS SUMMARY | 2025-04-06 08:11 | XMS_ITS | Clinical Summary ---
Author Organization [facility] [employer] Address [address] [facility] [place] [address] Care Team Providers Care Motorcycle Repairer Name Role Phone Justin Linton MD Primary Care Provider [phone] Source Comments [facility] [employer],non-owned Affiliates and Associated Physician Practices is amultiple site organization consisting of ambulatory clinics and hospital sitesin [place], [place], [place] and [place]. This disclosure is being madepursuant to the Care Everywhere program and may not contain all information available regarding this patient. Last updated 18.[facility] [employer] Social History Tobacco Use Types Packs/Day Years Used Date Smoking Tobacco: Never Assessed Sex and Gender Information Value Date Recorded Sex Assigned at Not on file Legal Sex Male 4:38 PM CDT Gender Identity Not on file Sexual Orientation Not on file Plan of Treatment Health Maintenance Due Date Last Done Comments COLOGUARD (AGES 45-75) - COL ON CA SCREENING 1971 COLON MONITORING 1971 COLONOSCOPY - COLON CA SCREENING 1971 CT COLONOGRAPHY - COLON CA SCREENING 1971 Colorectal Cancer Screening 1971 FIT - COLON CA SCREENING 1971 FLEX SIG - COLON CA SCREENING 1971 LIPID TESTING 1971 HIV SCREENING 1986 HEPATITIS C SCREENING 01/30/1989 DTAP/TDAP/TD VACCINES (1 - Tdap) 1990 HEPATITIS B VACCINE (1 of 3 - 19+ 3-dose series) 1990 PNEUMOCOCCAL VACCINE 50+ (1 of 1 - PCV) 2021 ZOSTER VACCINE (1 of 2) 2021 COVID-19 VACCINE ( - 2023-2 5 season) 2024 DEPRESSION SCREENING 11/01/2024 INFLUENZA VACCINE (Season Ended) 2025 HIB VACCINE Aged Out No longer eligi ble based on patient's age to complete this topic HPV VACCINE Aged Out No longer eligi ble based on patient's age to complete this topic MENINGOCOCCAL (Group B) VACC INE SHARED DECISION-MAKING Aged Out No longer eligibl e based on patient's age to complete this topic MENINGOCOCCAL GROUPS A/C/Y/W VACCINE Aged Out No longer eligible b ased on patient's age to complete this topic Insurance [facility] Care Teams Motorcycle Repairer Relationship Specialty Start Date End Date Justin Linton MD [address] [place] [address] PCP - General 07/28/22
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
[2025-04-06 08:22] LABS: Estimated Glomerular Filt Rate > 60
[2025-04-06 08:56] LABS: Add Urine Microscopic? NO; Appearance Urine Clear (Clear); Bilirubin Urine Negative (Negative); Blood Urine Negative (Negative); Color Urine Yellow (Yellow); Glucose Urine UA Negative (Negative); Ketones Urine Negative (Negative); Leukocyte Esterase Ur Negative LEU/UL (Negative); Nitrate Urine Negative (Negative); Protein Urine Negative (Negative); Specific Grav Ur 1.025 (1.001-1.035); Urobilinogen Urine 0.2 mg/dL (<2.0); pH Urine 6.5 (5.0-9.0)
[2025-04-06 09:05] LABS: Anion Gap 8 mmol/L (4-12); Blood Urea Nitrogen 14 mg/dL (9-20); Calcium 9.4 mg/dL (8.4-10.2); Carbon Dioxide 28 mmol/L (22-30); Chloride 99 mmol/L (98-107); Estimated Glomerular Filt Rate > 60; Glucose 103 mg/dL (65-110); Potassium 4.2 mmol/L (3.4-5.0); Sodium 135 mmol/L (137-145)
[2025-04-06 09:38] LABS: Prostate Specific Antigen 0.6 ng/mL (< OR = 4.0)
== END 2025-04-06 08:07 | disposition home or self-care (01) ==
LOC: ANHIMG 08:08
PROVIDERS: PCP Internal Medicine; Visit Provider Internal Medicine
DX: K76.0 Fatty (change of) liver, not elsewhere classified (principal); R91.8 Other nonspecific abnormal finding of lung field; R30.0 Dysuria; R35.0 Frequency of micturition; Z79.899 Other long term (current) drug therapy; Z12.5 Encounter for screening for malignant neoplasm of prostate
CPT/HCPCS: 36415; 74178; 80048; 81003; 84153; G0103; Q9967